=== PATIENT | female | born 1965 | race Hispanic/Latino ===

== ENCOUNTER 2022-10-11 14:29 | Emergency (ER) | payer OTHER ==
[~2022-10-11] VITALS: Ht 154.9 cm; Wt 70.9 kg
[2022-10-11] MEDS ORDERED: METFORMIN HCL500 MG PO (14:58)
[2022-10-11] MEDS ORDERED: DIOVAN80 MG PO (14:58)
[2022-10-11] MEDS ORDERED: ATORVASTATIN CA20 MG PO (14:58)
[2022-10-11] MEDS ORDERED: ACYCLOVIR400 MG (14:58)
[2022-10-11] MEDS ORDERED: CETIRIZINE HCL10 MG (14:58)
[2022-10-11] MEDS ORDERED: DICYCLOMINE HCL10 MG PO (14:58)
[2022-10-11] MEDS ORDERED: KETOROLAC TROMETHAMINE 30 MG/ML VIAL IV ONE (15:30)
[2022-10-11] MEDS ORDERED: SODIUM CHLORIDE 0.9% 1000ML 1,000 ML IV SCH (15:30)
[2022-10-11] MEDS ORDERED: IOPAMIDOL 370 MG/ML 100 ML INFUS..BTL INJ ONE (15:44)
[2022-10-11] MEDS ORDERED: SODIUM CHLORIDE 0.9% 1000ML 1,000 ML ONE (16:03)
[2022-10-11] MEDS ORDERED: KETOROLAC TROMETHAMINE 30 MG/ML VIAL ONE (16:03)
[2022-10-11] MEDS ORDERED: CIPRO500 MG PO (18:07)
[2022-10-11] MEDS ORDERED: ONDANSETRON ODT4 MG PO (18:07)
[2022-10-11] MEDS ORDERED: METRONIDAZOLE500 MG PO (18:08)
[2022-10-11] MEDS ORDERED: DICYCLOMINE HCL20 MG PO (18:09)
== END 2022-10-11 18:22 | disposition home or self-care (01) ==
LOC: FSED 14:37
DX: R50.9 Fever, unspecified (principal); R10.32 Left lower quadrant pain; K57.32 Diverticulitis of large intestine without perforation or abscess without bleeding; I10 Essential (primary) hypertension; E11.9 Type 2 diabetes mellitus without complications; K76.0 Fatty (change of) liver, not elsewhere classified; D17.79 Benign lipomatous neoplasm of other sites; E78.5 Hyperlipidemia, unspecified
CPT/HCPCS: 74177; 80048; 80076; 81003; 85025; 96374; 99284; J1885; J7030; Q9967

== ENCOUNTER 2025-02-28 08:17 | Emergency (ER) | payer OTHER ==
[~2025-02-28] VITALS: Ht 154.9 cm; Wt 70.6 kg
[~2025-02-28 08:17] MED LIST: ACYCLOVIR400 MG; ATORVASTATIN CA20 MG PO; CETIRIZINE HCL10 MG; CIPRO500 MG PO; DICYCLOMINE HCL10 MG PO; DICYCLOMINE HCL20 MG PO; DIOVAN80 MG PO; METFORMIN HCL500 MG PO; METRONIDAZOLE500 MG PO; ONDANSETRON ODT4 MG PO
[2025-02-28 08:25] VITALS: PULSE 85; RESP 18; TEMP 98.9
[2025-02-28] MEDS: DICYCLOMINE HCL 20 MG/2 ML VIAL IM ONE (08:51)
[2025-02-28] MEDS: SODIUM CHLORIDE 0.9% 1000ML 1,000 ML IV ONE (09:28)
[2025-02-28] MEDS ORDERED: DICYCLOMINE HCL20 MG PO (10:03)
[2025-02-28 10:20] VITALS: BP 119/54; PULSE 77; RESP 20; TEMP 97.9; O2SAT 95
== END 2025-02-28 10:19 | disposition home or self-care (01) ==
LOC: FSED 08:43
DX: R10.30 Lower abdominal pain, unspecified (principal); R19.7 Diarrhea, unspecified; I10 Essential (primary) hypertension; E11.65 Type 2 diabetes mellitus with hyperglycemia; E78.5 Hyperlipidemia, unspecified
CPT/HCPCS: 80053; 85025; 99283; J0500; J7030